=== PATIENT | female | born 1960 | race Two or more races ===

== ENCOUNTER 2018-10-20 08:58 | Inpatient (IN) | payer BC, OTHER ==
[~2018-10-20] VITALS: Ht 177.8 cm; Wt 86.0 kg
[2018-10-20 10:42] LABS: BASOPHILS # (AUTO) 0.04 x10^3/uL (0-0.1); BASOPHILS % (AUTO) 1 % (0-1); EOSINOPHILS # (AUTO) 0.06 x10^3/uL (0-0.4); EOSINOPHILS % (AUTO) 1 % (1-7); LYMPHOCYTES # (AUTO) 1.68 x10^3/uL (1-3.4); LYMPHOCYTES % (AUTO) 27 % (22-44); MD NO; MEAN CORPUSCULAR HEMOGLOBIN 30.1 pg (27.0-34.8); MEAN CORPUSCULAR HGB CONC 32.3 g/dL (32.4-35.8); MEAN CORPUSCULAR VOLUME 93.1 fL (80-100); MEAN PLATELET VOLUME 7.9 fL (7.4-10.4); MONOCYTES % (AUTO) 10 % (2-9); NEUTROPHILS # (AUTO) 3.92 x10^3/uL (1.8-6.8); NEUTROPHILS % (AUTO) 62 % (42-75); PLATELET COUNT 271 x10^3/uL (130-400); RED BLOOD COUNT 4.65 x10^6/uL (3.82-5.3); RED CELL DISTRIBUTION WIDTH 15.7 % (9.6-15.2)
[2018-10-20 10:55] LABS: ALBUMIN 2.5 g/dL (3.4-5.0); ANION GAP 6 mmol/L (5-15); CALCIUM 8.5 mg/dL (8.5-10.1); CHLORIDE 109 mmol/L (98-107)
[2018-10-20 10:59] LABS: ALANINE AMINOTRANSFERASE 18 U/L (12-78); ALKALINE PHOSPHATASE 120 U/L (45-117); BILIRUBIN,TOTAL 0.6 mg/dL (0.2-1.0); CREATININE 0.66 mg/dL (0.55-1.02); TOTAL PROTEIN 6.7 g/dL (6.4-8.2)
--- NOTE | 2018-10-20 12:05 | NUR ---
TO ROOM FROM LOBBY. NAD.
--- NOTE | 2018-10-20 12:11 | NUR ---
ABD PAIN X 2 DAYS. PAIN 8/10. DENIES VOMITTING, DIARRHEA. HX CHRONS, IBS.
[2018-10-20] MEDS ORDERED: MORPHINE SULFATE 4 MG/ML, 1ML IVPush PRN (12:30)
[2018-10-20] MEDS ORDERED: ONDANSETRON 2MG/ML, 2ML IVPush ONE (12:30)
[2018-10-20] MEDS ORDERED: ONDANSETRON 2MG/ML, 2ML ONE ×2 (13:14→15:44)
[2018-10-20] MEDS ORDERED: MORPHINE SULFATE 4 MG/ML, 1ML ONE (13:15)
[2018-10-20] MEDS ORDERED: OMNIPAQUE 350 MG/ML, 100ML BOTTLE ONE (13:27)
--- NOTE | 2018-10-20 13:35 | NUR ---
PT RESTING ON GUCELNEA. AWILDA. PT MEDICATE PER EMAR. PT REPORTS PAIN HAS GONE AWAY COMPLETELY.
--- NOTE | 2018-10-20 14:13 | NUR ---
report given to [facility] Tinajero
[2018-10-20] MEDS ORDERED: MIDAZOLAM 1 MG/ML, 2ML ONE (15:20)
[2018-10-20] MEDS ORDERED: FENTANYL PF 250 MCG/5ML ONE (15:21)
[2018-10-20] MEDS ORDERED: hydrALAzine 20 MG/ML, 1ML IV PRN (15:30)
[2018-10-20] MEDS ORDERED: HALOPERIDOL 5 MG/ML IV PRN (15:30)
[2018-10-20] MEDS ORDERED: ACETAMINOPHEN 325 MG TABLET PO PRN (15:30)
[2018-10-20] MEDS ORDERED: PROMETHAZINE 25 MG/ML, 1ML IV PRN (15:30)
[2018-10-20] MEDS ORDERED: OXYcodone 5 MG/5 ML ORAL.SOL UDC PO PRN (15:30)
[2018-10-20] MEDS ORDERED: MEPERIDINE/PF 25MG/0.5ML IVPush PRN (15:30)
[2018-10-20] MEDS ORDERED: PHENYLEPHRINE 10 MG/ML ONE (15:44)
[2018-10-20] MEDS ORDERED: ROCURONIUM 10MG/ML,5ML ONE (15:44)
[2018-10-20] MEDS ORDERED: PROPOFOL 10 MG/ML, 20ML ONE (15:44)
[2018-10-20] MEDS ORDERED: DEXAMETHASONE 4 MG/ML, 5ML ONE (15:44)
[2018-10-20] MEDS ORDERED: MEPERIDINE/PF 50 MG/ML ONE (16:48)
[2018-10-20] MEDS ORDERED: SUGAMMADEX 200 MG/2 ML IVPush ONE (17:03)
[2018-10-20] MEDS ORDERED: HYDROmorphone 2 MG/ML, 1ML ONE (17:41)
[2018-10-20] MEDS: HYDROmorphone 2 MG/ML, 1ML IVPush PRN ×3 (17:44→20:00)
[2018-10-20] MEDS ORDERED: FENTANYL PF 100 MCG/2ML ONE (17:48)
[2018-10-20] MEDS: FENTANYL PF 100 MCG/2ML IV PRN ×2 (17:51→18:11)
[2018-10-20] MEDS ORDERED: DIPHENHYDRAMINE 25 MG CAPSULE PO PRN (18:00)
[2018-10-20] MEDS ORDERED: ACETAMINOPHEN 650 MG/20.3 ML UDC PO PRN (18:00)
[2018-10-20] MEDS ORDERED: LORazepam 2 MG/ML, 1ML IV PRN (18:00)
[2018-10-20] MEDS ORDERED: EPHEDRINE 50 MG/ML, 1ML ONE (18:20)
[2018-10-20] MEDS: EPHEDRINE 50 MG/ML, 1ML IVPush PRN ×3 (18:21→18:56)
[2018-10-20] MEDS ORDERED: PHENYLEPHRINE 10 MG in SODIUM CHLORIDE 0.9% 249 ML IV ONE (18:57)
[2018-10-20] MEDS ORDERED: ALBUMIN HUMAN 5% 500 ML IV ONE (19:00)
[2018-10-20 19:32] LABS: MD YES; MEAN CORPUSCULAR HEMOGLOBIN 30.1 pg (27.0-34.8); MEAN CORPUSCULAR HGB CONC 32.1 g/dL (32.4-35.8); MEAN CORPUSCULAR VOLUME 93.9 fL (80-100); MEAN PLATELET VOLUME 7.9 fL (7.4-10.4); PLATELET COUNT 405 x10^3/uL (130-400); RED BLOOD COUNT 3.23 x10^6/uL (3.82-5.3); RED CELL DISTRIBUTION WIDTH 15.9 % (9.6-15.2)
[2018-10-20 19:34] LABS: BAND#(MANUAL) 4.32 x10^3/uL; BANDS%(MANUAL) 23 % (0-7); LYMPH#(MANUAL) 1.32 x10^3/uL (1-3.4); LYMPHS% (MANUAL) 7 % (22-44); MONOS#(MANUAL) 0.38 x10^3/uL (0.3-2.7); MONOS% (MANUAL) 2 % (2-9); SEG#(MANUAL) 12.78 x10^3/uL (1.8-6.8); SEGS% (MANUAL) 68 % (42-75)
[2018-10-20 19:36] LABS: <PLATELET ESTIMATE> INCREASED
[2018-10-20 19:37] LABS: <PLT MORPHOLOGY> NORMAL PLT MORPH; ANISOCYTOSIS 1+; HYPOCHROMIA 1+
[2018-10-20] MEDS ORDERED: SODIUM CHLORIDE 0.9% 1,000ML IVBOLUS ONE (21:30)
[2018-10-20 22:08] VITALS: BP 94/58
[2018-10-20] MEDS: CEFOTETAN PMX 1GM/50ML 50 ML IVPB SCH (23:42)
[2018-10-21] VITALS (7 sets, daily range): BP systolic 81–104; BP diastolic 47–62
[2018-10-21] MEDS: POTASSIUM CHLORIDE 20 MEQ in D5%-0.45% NACL 1,000 ML IV SCH ×2 (00:06→08:00)
[2018-10-21] MEDS: PHENYLEPHRINE 10 MG in SODIUM CHLORIDE 0.9% 249 ML IV SCH ×3 (00:07→10:36)
[2018-10-21 04:55] LABS: ALBUMIN 1.9 g/dL (3.4-5.0); ANION GAP 3 mmol/L (5-15); CALCIUM 7.2 mg/dL (8.5-10.1); CHLORIDE 113 mmol/L (98-107); CREATININE 0.77 mg/dL (0.55-1.02); MEAN CORPUSCULAR HEMOGLOBIN 29.6 pg (27.0-34.8); MEAN CORPUSCULAR VOLUME 92.5 fL (80-100); MEAN PLATELET VOLUME 7.4 fL (7.4-10.4); PLATELET COUNT 323 x10^3/uL (130-400); RED BLOOD COUNT 2.44 x10^6/uL (3.82-5.3); RED CELL DISTRIBUTION WIDTH 15.9 % (9.6-15.2)
[2018-10-21 05:42] LABS: MD YES
[2018-10-21 05:44] LABS: ANISOCYTOSIS 1+; BAND#(MANUAL) 1.89 x10^3/uL; BANDS%(MANUAL) 9 % (0-7); BASOS#(MANUAL) 0.21 x10^3/uL (0-0.1); BASOS% (MANUAL) 1 % (0-1); HYPOCHROMIA 1+; LYMPH#(MANUAL) 1.47 x10^3/uL (1-3.4); LYMPHS% (MANUAL) 7 % (22-44); MONOS#(MANUAL) 0.84 x10^3/uL (0.3-2.7); MONOS% (MANUAL) 4 % (2-9); SEG#(MANUAL) 16.59 x10^3/uL (1.8-6.8); SEGS% (MANUAL) 79 % (42-75)
[2018-10-21 05:45] LABS: <PLATELET ESTIMATE> ADEQUATE; <PLT MORPHOLOGY> NORMAL PLT MORPH
[2018-10-21 05:54] LABS: MICROSCOPIC NOT IND
[2018-10-21 06:08] LABS: CULTURE INDICATED? NO
[2018-10-21] MEDS: ENOXAPARIN 40 MG/0.4 ML SQ SCH (08:49)
[2018-10-21] MEDS ORDERED: HYDROCORTISONE 100 MG INJ. IV ONE (09:00)
[2018-10-21] MEDS: CEFOTETAN PMX 1GM/50ML 50 ML IVPB SCH (11:26)
[2018-10-21] MEDS: ONDANSETRON 2MG/ML, 2ML IVPush PRN (13:39)
[2018-10-21] MEDS: HYDROCORTISONE 100 MG INJ. IVPush SCH ×2 (15:13→20:22)
[2018-10-21] MEDS: SODIUM CHLORIDE 0.9% 1,000 ML IV SCH (23:50)
[2018-10-22] MEDS: HYDROCORTISONE 100 MG INJ. IVPush SCH ×3 (03:38→17:00)
[2018-10-22 04:09] LABS: ANION GAP 4 mmol/L (5-15); CALCIUM 6.4 mg/dL (8.5-10.1); CHLORIDE 119 mmol/L (98-107); CREATININE 0.35 mg/dL (0.55-1.02)
[2018-10-22 04:31] VITALS: BP 96/57
[2018-10-22 04:40] LABS: MEAN CORPUSCULAR HEMOGLOBIN 30.3 pg (27.0-34.8); MEAN CORPUSCULAR HGB CONC 32.3 g/dL (32.4-35.8); MEAN CORPUSCULAR VOLUME 93.8 fL (80-100); MEAN PLATELET VOLUME 7.5 fL (7.4-10.4); PLATELET COUNT 175 x10^3/uL (130-400); RED BLOOD COUNT 2.34 x10^6/uL (3.82-5.3); RED CELL DISTRIBUTION WIDTH 15.8 % (9.6-15.2)
[2018-10-22 05:18] LABS: BASOPHILS # (AUTO) 0.01 x10^3/uL (0-0.1); BASOPHILS % (AUTO) 0 % (0-1); EOSINOPHILS % (AUTO) 0 % (1-7); LYMPHOCYTES # (AUTO) 0.81 x10^3/uL (1-3.4); LYMPHOCYTES % (AUTO) 9 % (22-44); MD SCAN; MONOCYTES # (AUTO) 0.45 x10^3/uL (0.2-0.8); MONOCYTES % (AUTO) 5 % (2-9); NEUTROPHILS % (AUTO) 86 % (42-75)
[2018-10-22] MEDS: SODIUM CHLORIDE 0.9% 1,000 ML IV SCH (06:58)
[2018-10-22] MEDS: ENOXAPARIN 40 MG/0.4 ML SQ SCH (09:18)
[2018-10-22] MEDS: SODIUM CHLORIDE 0.45% 1,000 ML IV SCH (15:31)
[2018-10-22 21:11] VITALS: BP 110/69
[2018-10-23] VITALS (9 sets, daily range): BP systolic 98–127; BP diastolic 66–86
[2018-10-23] MEDS: SODIUM CHLORIDE 0.45% 1,000 ML IV SCH ×3 (00:45→22:25)
[2018-10-23] MEDS: HYDROCORTISONE 100 MG INJ. IVPush SCH ×3 (00:47→17:08)
[2018-10-23 05:39] LABS: MEAN CORPUSCULAR HEMOGLOBIN 30.5 pg (27.0-34.8); MEAN CORPUSCULAR HGB CONC 32.7 g/dL (32.4-35.8); MEAN CORPUSCULAR VOLUME 93.3 fL (80-100); MEAN PLATELET VOLUME 7.9 fL (7.4-10.4); PLATELET COUNT 157 x10^3/uL (130-400); RED BLOOD COUNT 2.26 x10^6/uL (3.82-5.3); RED CELL DISTRIBUTION WIDTH 15.3 % (9.6-15.2)
[2018-10-23 05:45] LABS: ANION GAP 4 mmol/L (5-15); CALCIUM 7.9 mg/dL (8.5-10.1); CHLORIDE 108 mmol/L (98-107); CREATININE 0.39 mg/dL (0.55-1.02)
[2018-10-23 06:05] LABS: BASOPHILS % (AUTO) 0 % (0-1); EOSINOPHILS % (AUTO) 0 % (1-7); LYMPHOCYTES % (AUTO) 9 % (22-44); MD MORPH REVIEW ONLY; MONOCYTES # (AUTO) 0.38 x10^3/uL (0.2-0.8); MONOCYTES % (AUTO) 5 % (2-9); NEUTROPHILS # (AUTO) 6.76 x10^3/uL (1.8-6.8); NEUTROPHILS % (AUTO) 86 % (42-75)
[2018-10-23 06:06] LABS: ANISOCYTOSIS 1+
[2018-10-23 06:07] LABS: <PLATELET ESTIMATE> ADEQUATE; POLYCHROMASIA 1+
[2018-10-23 06:09] LABS: <PLT MORPHOLOGY> NORMAL PLT MORPH; TOXIC GRAN 1+
[2018-10-23] MEDS: ENOXAPARIN 40 MG/0.4 ML SQ SCH (08:55)
[2018-10-23] MEDS ORDERED: POTASSIUM CHLORIDE 20 MEQ TAB.ER.PRT PO ONE (11:30)
[2018-10-24] VITALS (7 sets, daily range): BP systolic 101–137; BP diastolic 69–88
[2018-10-24] MEDS: HYDROCORTISONE 100 MG INJ. IVPush SCH (00:50)
[2018-10-24 06:13] LABS: MEAN CORPUSCULAR HGB CONC 32.3 g/dL (32.4-35.8); MEAN CORPUSCULAR VOLUME 92.8 fL (80-100); MEAN PLATELET VOLUME 7.7 fL (7.4-10.4); PLATELET COUNT 206 x10^3/uL (130-400); RED BLOOD COUNT 3.06 x10^6/uL (3.82-5.3); RED CELL DISTRIBUTION WIDTH 16.3 % (9.6-15.2)
[2018-10-24 06:25] LABS: CALCIUM 8.2 mg/dL (8.5-10.1); CHLORIDE 111 mmol/L (98-107)
[2018-10-24 06:29] LABS: ANION GAP 5 mmol/L (5-15)
[2018-10-24 06:31] LABS: BASOPHILS # (AUTO) 0.01 x10^3/uL (0-0.1); BASOPHILS % (AUTO) 0 % (0-1); EOSINOPHILS % (AUTO) 0 % (1-7); LYMPHOCYTES # (AUTO) 0.71 x10^3/uL (1-3.4); LYMPHOCYTES % (AUTO) 9 % (22-44); MD SCAN; MONOCYTES # (AUTO) 0.34 x10^3/uL (0.2-0.8); MONOCYTES % (AUTO) 4 % (2-9); NEUTROPHILS # (AUTO) 6.79 x10^3/uL (1.8-6.8); NEUTROPHILS % (AUTO) 86 % (42-75)
[2018-10-24] MEDS: HYDROcodone/APAP 5/325 TABLET PO PRN ×4 (09:15→22:56)
[2018-10-24] MEDS: ENOXAPARIN 40 MG/0.4 ML SQ SCH (09:15)
[2018-10-24] MEDS: ONDANSETRON 2MG/ML, 2ML IVPush PRN (17:31)
[2018-10-25 00:05] VITALS: BP 110/76
[2018-10-25] MEDS: HYDROcodone/APAP 5/325 TABLET PO PRN ×3 (04:16→12:05)
[2018-10-25 04:30] VITALS: BP 117/79
[2018-10-25 05:19] LABS: BASOPHILS % (AUTO) 0 % (0-1); EOSINOPHILS # (AUTO) 0.06 x10^3/uL (0-0.4); EOSINOPHILS % (AUTO) 1 % (1-7); LYMPHOCYTES # (AUTO) 1.01 x10^3/uL (1-3.4); LYMPHOCYTES % (AUTO) 10 % (22-44); MD NO; MEAN CORPUSCULAR HGB CONC 32.1 g/dL (32.4-35.8); MEAN CORPUSCULAR VOLUME 93.3 fL (80-100); MEAN PLATELET VOLUME 7.6 fL (7.4-10.4); MONOCYTES # (AUTO) 0.46 x10^3/uL (0.2-0.8); MONOCYTES % (AUTO) 4 % (2-9); NEUTROPHILS % (AUTO) 85 % (42-75); PLATELET COUNT 237 x10^3/uL (130-400); RED BLOOD COUNT 3.15 x10^6/uL (3.82-5.3); RED CELL DISTRIBUTION WIDTH 15.8 % (9.6-15.2)
[2018-10-25 05:23] LABS: ANION GAP 5 mmol/L (5-15); CALCIUM 7.7 mg/dL (8.5-10.1); CHLORIDE 110 mmol/L (98-107); CREATININE 0.52 mg/dL (0.55-1.02)
[2018-10-25 07:25] VITALS: BP 111/74
[2018-10-25] MEDS: ENOXAPARIN 40 MG/0.4 ML SQ SCH (08:08)
[2018-10-25] MEDS ORDERED: HYDR-3240 PO (09:41)
[2018-10-25] MEDS ORDERED: ONDA4TAB7 PO (09:41)
[2018-10-25 11:55] VITALS: BP 117/79
== END 2018-10-25 14:00 | disposition home or self-care (01) | DRG 853 ==
LOC: OR 13:59 → EDIP 14:05 → OR 15:29 → CCU 21:03 → 4NOR 10-22 13:53 → DCLOUNGE 10-25 13:48
PROVIDERS: ADMIT Surgery; ATTEND Surgery
PROC: 0DB80ZZ Excision of Small Intestine, Open Approach (ICD-10-PCS; 2018-10-20)
PROC: 07BB0ZX Excision of Mesenteric Lymphatic, Open Approach, Diagnostic (ICD-10-PCS; 2018-10-20)
PROC: 0DTF0ZZ Resection of Right Large Intestine, Open Approach (ICD-10-PCS; principal; 2018-10-20 15:00)
PROC: 30233N1 Transfusion of Nonautologous Red Blood Cells into Peripheral Vein, Percutaneous Approach (ICD-10-PCS; 2018-10-21)
PROC: 02HV33Z Insertion of Infusion Device into Superior Vena Cava, Percutaneous Approach (ICD-10-PCS; 2018-10-21)
PROC: B548ZZA Ultrasonography of Superior Vena Cava, Guidance (ICD-10-PCS; 2018-10-21)
DX: A41.9 Sepsis, unspecified organism (principal); K56.2 Volvulus; D62 Acute posthemorrhagic anemia; E27.40 Unspecified adrenocortical insufficiency; E46 Unspecified protein-calorie malnutrition; E87.0 Hyperosmolality and hypernatremia; K50.90 Crohn's disease, unspecified, without complications; R65.20 Severe sepsis without septic shock; E86.0 Dehydration; E87.8 Other disorders of electrolyte and fluid balance, not elsewhere classified; F12.90 Cannabis use, unspecified, uncomplicated; F32.9 Major depressive disorder, single episode, unspecified; G89.4 Chronic pain syndrome; K58.9 Irritable bowel syndrome, unspecified; Z68.27 Body mass index [BMI] 27.0-27.9, adult; Z82.49 Family history of ischemic heart disease and other diseases of the circulatory system; Z83.3 Family history of diabetes mellitus
CPT/HCPCS: 36415; 36573; 71045; 74021; 74177; 76705; 80048; 80053; 81003; 82040; 82533; 82728; 83540; 83550; 83605; 83690; 84443; 85014; 85018; 85025; 86850; 86900; 86923; 87040; 87081; 88305; 88307; 88333; 93005; 96374; 96375; G0378; J1100; J1170; J1650; J2175; J2250; J2270; J2405; J2704; J3010; J3480; P9045; Q9967; C1751; J1720; J2060; J2370; J3490; J7030; J7050; P9016

== ENCOUNTER 2018-12-16 11:18 | Outpatient (CLI) | payer BC | END 2018-12-16 23:59 | disposition home or self-care (01) | LOC: CFH 11:18 | PROVIDERS: ATTEND Internal Medicine Geriatric Medicine | DX: K50.90 Crohn's disease, unspecified, without complications (principal); K76.89 Other specified diseases of liver; R59.0 Localized enlarged lymph nodes; J90 Pleural effusion, not elsewhere classified; J98.11 Atelectasis; K63.89 Other specified diseases of intestine | CPT/HCPCS: 72197; 74183; A9585; J1610 ==